=== PATIENT | female | born 1945 | race Caucasian/White ===

== ENCOUNTER 2017-08-12 19:20 | Inpatient (IN) ==
--- NOTE | 2017-08-12 20:21 | Emergency Department Note ---
Weakness HPI - General Chief complaint: Weakness Stated complaint: weakness Time Seen by Provider: 08/12/17 19:51 Source: patient Mode of arrival: ambulatory Limitations: no limitations - History of Present Illness HPI Narrative: 71-year-old female presents with back pain and weakness. She has metastatic breast cancer and has metastasized to her bones and her liver. She is receiving treatment for this. She had a fall 10 days ago and has a fracture in her low back. She was admitted at [facility] twice for this in the last 10 days. She wanted to go home and thought she could take care of herself at home but today she had another fall. She states she was going from the toilet to the walker and could not support herself and fell backwards onto her back. She states she has worse pain but no new pain. She is taking morphine twice a day along with codeine and ibuprofen. She denies any hip pain. She denies any hitting her head or loss of consciousness. She denies any upper extremity pain. She states at this point she cannot take care of herself at home and is very weak in her lower extremities. She needs to be in a nursing facility to get her strength up. - Related Data Allergies Allergy/AdvReac Type Severity Reaction Status Date / Time No Known Drug Allergies Allergy Verified 08/12/17 19:28 Review of Systems All systems ED: reviewed and negative except as stated. Past Medical History - Past Medical History Medical history: Reports: other (Metastatic breast cancer to bone and liver receiving treatment) Psychiatric history: Reports: no psych history [employer] history: Reports: non-contributory Surgical history ED: Reports: other (right shoulder, mastectomy) Family history: Reports: non-contributory - Social History smoking status: Never smoker Physical Exam Limitations: no limitations General appearance: alert, in no apparent distress Head: atraumatic Eye: Present: normal appearance. Absent: conjunctival injection Neck: Present: normal inspection, full ROM Chest: Present: normal inspection, symmetric chest wall rise Respiratory: Present: normal lung sounds bilaterally Cardiovascular: Present: regular rate, normal heart sounds Abdominal: Present: soft, normal bowel sounds. Absent: tenderness Extremities: Present: normal inspection, full ROM Neurological: Present: alert, oriented X3 Psychiatric: Present: normal affect, normal mood Skin: Present: warm, dry, intact Course Course Narrative: Reviewing her paperwork from [facility] she had the same issues on Tuesday. She was admitted and discharged 3 days ago. At that time and they plan that said that she was going to try to get placed into a SNF but she states that this was not discussed. She does not remember if she said she wanted to stay at home or go to a nursing facility. She states she is taking her MS Contin 15 mg twice a day and the oxycodone 10-20 mg every 4-6 hours. She had a CT scan which showed the pathologic fracture that was nondisplaced and she had a repeat x-ray which did not show any acute abnormality. She thinks that taking the pain medication is causing her to fall because she feels unsteady on her feet Report given to Dr. Olea and he will continue care of the patient Vital Signs Temperature 99.1 F H 08/12/17 19:21 Pulse Rate 78 08/12/17 19:21 Respiratory Rate 16 08/12/17 19:21 Blood Pressure 149/92 08/12/17 19:21 Pulse Oximetry (%) 96 08/12/17 19:21 Temperature 99.1 F H 08/12/17 19:21 Pulse Rate 78 08/12/17 22:03 Respiratory Rate 16 08/12/17 19:21 Blood Pressure 144/86 08/12/17 22:03 Pulse Oximetry (%) 97 08/12/17 22:03 Weakness - Lab Data Lab results reviewed: Yes I reviewed the patient's lab results. Result diagrams: 08/12/17 20:21 08/12/17 20:21 Lab Results 08/12/17 08/12/17 Range/Units 20:21 20:21 WBC 8.3 (4.5-11.0) K/mcL RBC 4.12 (4.00-5.20) M/mcL Hgb 13.2 (12.0-15.0) g/dL Hct 40.0 (36.0-48.0) % MCV 97.0 (80.0-100.0) fL MCH 31.9 (26.0-34.0) pg MCHC 32.9 (31.0-36.0) g/dL RDW 17.9 H (11.5-14.5) % Plt Count 168 (140-440) K/mcL MPV 8.2 (7.4-10.4) fL Total Counted 100 Seg Neutrophils % 78 (38-78) % Band Neutrophils % 1 (0-10) % Lymphocytes % 14 L (15-49) % Monocytes % (Manual) 5 (1-12) % Eosinophils % (Manual) 1 (0-7) % Reactive Lymphocytes 1 (0-2) % Platelet Estimate Normal (NORMAL) RBC Morphology Abnorm A (NORMAL) Anisocytosis 2+ A (NONE SEEN) Ovalocytes 1+ A (NONE SEEN) Sodium 137 (133-145) mmol/L Potassium 4.2 (3.3-5.1) mmol/L Chloride 102 (96-108) mmol/L Carbon Dioxide 21 L (22-30) mmol/L Anion Gap 14.0 (8-16) BUN 21 (8-23) mg/dl Creatinine 1.0 (0.6-1.1) mg/dl GFR Calculation 57 Glucose 109 H (70-105) mg/dL Calcium 8.6 (8.6-10.4) mg/dl Total Bilirubin 0.5 (0.0-1.0) mg/dL AST 31 (0-37) U/l ALT 33 (0-40) U/l Alkaline Phosphatase 56 (39-117) U/L Total Protein 6.1 (5.9-8.4) gm/dL Albumin 3.7 (3.2-5.2) gm/dL Globulin 2.4 (2.2-3.7) gm/dL Albumin/Globulin Ratio 1.5 (1.0-2.3) Disposition Pt seen by GROOMING ASSISTANT/PA only: No Clinical Impression: Intractable pain Condition: Fair Referrals: Enma Boss [Primary Care Provider] -
[2017-08-12] MEDS ORDERED: HYDROmorphone 2 MG/ML VIAL IM ONE (20:29)
[2017-08-12 21:10] LABS: Mean Corpuscular HGB Conc 32.9 g/dL (31.0-36.0); Mean Corpuscular Hemoglobin 31.9 pg (26.0-34.0); Platelet Count 168 K/mcL (140-440); RBC 4.12 M/mcL (4.00-5.20); Red Cell Distribution Width 17.9 % (11.5-14.5)
[2017-08-12 21:13] LABS: ALT/SGPT 33 U/l (0-40); Albumin 3.7 gm/dL (3.2-5.2); Albumin/Globulin Ratio 1.5 (1.0-2.3); Alkaline Phosphatase 56 U/L (39-117); Blood Urea Nitrogen 21 mg/dl (8-23)
[2017-08-12 21:46] LABS: Anisocytosis 2+ (NONE SEEN); Band Neutrophils % 1 % (0-10); Eosinophils % (Manual) 1 % (0-7); Lymphocytes % 14 % (15-49); Monocytes % (Manual) 5 % (1-12); Ovalocytes 1+ (NONE SEEN); Platelet Estimate NORMAL (NORMAL); RBC Morphology ABNORM (NORMAL); Segmented Neutrophils % 78 % (38-78)
[2017-08-12 23:48] LABS: Appearance,Urine HAZY; Bacteria,Urine FEW /hpf (0); Bilirubin,Urine NEG (NEG); Calcium Oxalate Crystals,Urine MANY /hpf (0); Color,Urine AMBER; Glucose,Urine (UA) NEGATIVE (NEG); Leukocyte Esterase,Urine 250 /uL (NEG); Mucus,Urine MOD /hpf (0); Protein,Urine 100 mg/dL (NEG); Specific Gravity,Urine 1.036 (1.000-1.035); Urine Blood NEG mg/dL (<0.03); Urine Budding Yeast FEW /hpf (0); Urine Hyaline Cast 1 /lpf (0-2); Urine RBC 3 /hpf (0-1); Urine Squamous Epithelial Cell 2 /hpf (0-4); Urine Transitional Epi Cells 1 /hpf (0-2); Urine WBC 9 /hpf (0-4); Urobilinogen,Urine NEG (NEG)
[2017-08-13] MEDS ORDERED: levETIRAcetam 500 MG in 0.9 % SODIUM CHLORIDE 100 ML IV ONE (01:05)
--- NOTE | 2017-08-13 01:55 | Internal Med History&Physical ---
Medical - H&P: HPI Patient information: Note initiated : 08/13/17 at 1:53 am Service Date, if different from initiated Date: [] Patient: Lulu Emmanuel a 71 y/o F admitted on for weakness. Chief Complaint: [] History of present illness: Ms. Emmanuel is a 71 year old F with history of diabetes metastatic breast cancer comes to the emergency room with complaints of back pain. According to the patient she has been having back pain for the last 2 weeks. She was seen in the [facility] for same and was admitted to that facility. She has had a scan done a CAT scan which showed a pathological fracture. She was given pain management and discharged home. Patient notes that she was getting better and therefore decided to go home. After going home she notes that the pain has been progressively getting worse, she fell down today because of severe pain and is unable to care for herself at this point. Patient therefore came to the hospital to see if she could be placed to a group home. The patient during the stay in the emergency room also possibly had a seizure which was witnessed by the ER physician. During my conversation with the patient the patient noted that she had no recollection of the said seizure. The patient does have a history of seizures and takes Keppra for same. Last seizure was approximately a year ago. The patient is able to move all her limbs and denies any focal neurological deficit, denies any bowel bladder incontinence. The patient's workup in the emergency showed normal hemoglobin and WBC count, normal platelets, unremarkable basic metabolic profile, UA possibly suggestive of UTI however the patient has no urinary symptoms. The patient notes that she has had a loop recorder in place to evaluate for any cardiac arrhythmia, however this is an MRI safe device. And she has had MRIs done after placement of this device. The patient did not bring any of her home medications for verification at this point in time. Given the fact that patient cannot be discharged back home due to intractable pain, possible UTI and seizure the patient is being admitted to the hospital for further evaluation. The patient is a DNR CODE STATUS Review of systems: CONSTITUTIONAL: No weight loss, fever, chills, weakness or fatigue. HEENT: Eyes: No visual loss, blurred vision, double vision or yellow sclerae. Ears, Nose, Throat: No hearing loss, sneezing, congestion, runny nose or sore throat. SKIN: No rash or itching. CARDIOVASCULAR: No chest pain, chest pressure or chest discomfort. No palpitations or edema. RESPIRATORY: No shortness of breath, cough or sputum. GASTROINTESTINAL: No nausea, vomiting or diarrhea or constipation. No abdominal pain or blood in stools No Sharon. GENITOURINARY: Denies Burning on urination. Blood in urine, or foul smelling urine NEUROLOGICAL: No headache, dizziness, syncope, paralysis, tremors, numbness or tingling in the extremities. No change in bowel or bladder control. MUSCULOSKELETAL: patient has severe back pain, right knee pain HEMATOLOGIC: No bleeding or bruising. No enlarged nodes PSYCHIATRIC: No depression or anxiety. ENDOCRINOLOGIC: No reports of sweating, cold or heat intolerance. No polyuria or polydipsia. ALLERGIES: No hives, eczema or rhinitis. Skin: No rash, no jaundice, cyanosis or pallor. Medical - H&P: PMH Medical history: Metastatic breast cancer Hypertension Diabetes Obesity Vertebral fracture Surgical history: Bilateral knee replacement, right shoulder replacement Pertinent family history: Reviewed not relevant Social history: Lives by herself, brother who lives outside of the town is here to help her and her mother. Denies any history of smoking or recreational substance use Medical - H&P: Meds Allergies Allergy/AdvReac Type Severity Reaction Status Date / Time No Known Drug Allergies Allergy Verified 08/12/17 19:28 Medical - H&P: Exam - Constitutional Vitals: Temp Pulse Resp BP Pulse Ox 99.1 F H 79 16 165/96 99 08/12/17 19:21 08/13/17 01:31 08/12/17 19:21 08/13/17 01:31 08/13/17 01:31 Exam: GENERAL: The patient is a well-developed, well-nourished in no apparent distress. Is alert and oriented x3. VITAL SIGNS: Reviewed and as noted elsewhere. HEENT: Head is normocephalic and atraumatic. Extraocular muscles are intact. Pupils are equal, round, and reactive to light. Nares appeared normal. Mouth appears any without lesions. Mucous membranes are moist. NECK: Normal to inspection, Supple, No lymphadenopathy or thyromegaly. LUNGS: Air entry equal on both sides, no wheezing, crackles or rhonchi noted. No accessory muscles of respiration HEART: Regular rate and rhythm normal, S1 and S2 heard, no Gallop, S3 or Rub Noted, No Gross murmur heard. ABDOMEN: Soft, nontender, and nondistended. Positive bowel sounds. No hepatosplenomegaly was noted. EXTREMITIES: No cyanosis, clubbing, rash, lesions or edema. NEUROLOGIC: Cranial nerves II through XII are grossly intact. Motor and Sensory System Grossly Intact PSYCHIATRIC: Normal affect, Normal Mood. Appropriate Behavior. SKIN: No ulceration or wounds noted, No jaundice, No rash noted. Medical - H&P: Reslt - Labs CBC & Chem 7: 08/12/17 20:21 08/12/17 20:21 Labs: Short CBC 08/12/17 Range/Units 20:21 WBC 8.3 (4.5-11.0) K/mcL Hgb 13.2 (12.0-15.0) g/dL Hct 40.0 (36.0-48.0) % Plt Count 168 (140-440) K/mcL BMP 08/12/17 20:21 Sodium 137 Potassium 4.2 Chloride 102 Carbon Dioxide 21 L BUN 21 Creatinine 1.0 Glucose 109 H Calcium 8.6 Liver Function 08/12/17 Range/Units 20:21 Total Bilirubin 0.5 (0.0-1.0) mg/dL AST 31 (0-37) U/l ALT 33 (0-40) U/l Alkaline Phosphatase 56 (39-117) U/L Albumin 3.7 (3.2-5.2) gm/dL Urine 08/12/17 Range/Units 23:05 Urine Color Ludmila Urine Appearance Hazy Urine pH 5.0 (5.0-9.0) Ur Specific [place] 1.036 H (1.000-1.035) Urine Protein 100 A (NEG) mg/dL Urine Glucose (UA) Negative (NEG) mg/dL Medical - H&P: A/P - Narrative A/P Narrative: A/P Pathological Vertebral Fracture Seizure Disorder Urinary Tract Infection Diabetes Hypertension Intractable Pain, secondary metastatic disease, Pathological fracture Plan Admit to med surg as inpatient IV dilaudid for pain control neurochecks q4hrs, Iv keppra x 1, verify home meds iv rocephin for uti, await culture results resume home meds as appropriate Get x ray of right knee, try to obtain mri LS spine, MR Head, given, if not possible then consider CT spine and CT head DVT hep sq' DNR code status Diabetic Diet.
[2017-08-13] MEDS ORDERED: ACETAMINOPHEN 325 MG TABLET PO PRN (02:32)
[2017-08-13] MEDS ORDERED: DEXTROSE 31 GM ORAL.SUSP PO PRN (02:32)
[2017-08-13] MEDS ORDERED: DEXTROSE 50% 50 ML VIAL IV PRN (02:32)
[2017-08-13] MEDS ORDERED: IBUPROFEN 600 MG TABLET PO PRN (02:32)
[2017-08-13] MEDS ORDERED: cefTRIAXone 1 GM VIAL ONE (02:38)
[2017-08-13] MEDS ORDERED: ONDANSETRON 4 MG/2 ML VIAL ONE (02:46)
[2017-08-13] MEDS ORDERED: HYDROmorphone 2 MG/ML VIAL ONE ×3 (02:46→12:37)
[2017-08-13] MEDS: cefTRIAXone 1 GM in DEXTROSE 5% IN WATER 50 ML IV SCH ×3 (02:51→17:33)
[2017-08-13] MEDS: ONDANSETRON 4 MG/2 ML VIAL IV PRN ×2 (02:51→13:06)
[2017-08-13] MEDS: HYDROmorphone 2 MG/ML VIAL IV PRN ×5 (02:52→18:45)
[2017-08-13] MEDS: 0.9 % SODIUM CHLORIDE 1,000 ML IV SCH ×2 (02:55→12:43)
[2017-08-13 06:08] LABS: Basophils # (Auto) 0 K/mcL (0.0-0.3); Basophils % (Auto) 0.2 % (0.0-2.0); Eosinophils # (Auto) 0.3 K/mcL (0.0-0.7); Eosinophils % (Auto) 4.2 % (0.0-7.0); Granulocytes % (Auto) 73.1 % (38.0-78.0); Lymphocytes # (Auto) 1.1 K/mcL (1.5-4.8); Lymphocytes % (Auto) 13.8 % (15.5-49.0); Mean Cell Volume 99.1 fL (80.0-100.0); Mean Corpuscular HGB Conc 33.6 g/dL (31.0-36.0); Mean Corpuscular Hemoglobin 33.2 pg (26.0-34.0); Monocytes # (Auto) 0.7 K/mcL (0.1-0.9); Monocytes % (Auto) 8.7 % (1.0-12.0); Platelet Count 132 K/mcL (140-440); RBC 3.64 M/mcL (4.00-5.20); Red Cell Distribution Width 19.6 % (11.5-14.5)
[2017-08-13] MEDS: 0.9 % SODIUM CHLORIDE 10 ML SYRINGE IV SCH ×3 (06:11→20:40)
[2017-08-13 06:36] LABS: ALT/SGPT 32 U/l (0-40); Albumin 3.3 gm/dL (3.2-5.2); Albumin/Globulin Ratio 1.7 (1.0-2.3); Alkaline Phosphatase 52 U/L (39-117); Bilirubin,Direct < 0.2 mg/dL (0.0-0.3); Blood Urea Nitrogen 19 mg/dl (8-23); Gamma Glutamyl Transpeptidase 28 U/L (5-36); Uric Acid 2.7 mg/dL (2.5-8.0)
[2017-08-13] MEDS: INSULIN LISPRO 1 UNIT/0.01 ML UNIT SQ SCH ×4 (07:12→21:00)
[2017-08-13] MEDS: PANTOPRAZOLE 40 MG TABLET PO SCH (07:30)
[2017-08-13] MEDS: HEPARIN 5,000 UNIT/ML VIAL SQ SCH ×2 (08:46→20:38)
[2017-08-13] MEDS: DOCUSATE SODIUM 100 MG CAPSULE PO SCH ×2 (08:47→20:39)
[2017-08-13] MEDS ORDERED: levETIRAcetam 500 MG TABLET PO SCH (09:00)
--- NOTE | 2017-08-13 09:06 | XRay Report ---
CLINICAL INFORMATION: Previous bilateral total knee arthroplasty TECHNIQUE: AP and lateral bilateral knees COMPARISON: Postoperative right knee dated 03/30/2010, postoperative left knee dated 07/06/2010 FINDINGS: Previous bilateral total knee arthroplasty. No acute fracture. There is lucency surrounding the tibial complements bilaterally, left more prominent than right. This may indicate loosening. There is no bone destruction. No displacement or malalignment. IMPRESSION: 1. Previous bilateral total knee replacement 2. No acute fracture 3. Lucency surrounding the tibial complements as above Interpreted and Authenticated by: Hector Jones 08/13/17
[2017-08-13] MEDS ORDERED: MAGNESIUM HYDROXIDE 30 ML ORAL.SUSP PO PRN (12:28)
[2017-08-13] MEDS ORDERED: ONDANSETRON ODT 4 MG TABLET SL PRN (12:28)
[2017-08-13] MEDS ORDERED: ALBUTEROL SULFATE 2.5 MG/3 ML NEBULIZER NEB PRN (12:28)
[2017-08-13] MEDS ORDERED: BISACODYL 10 MG SUPP.RECT PR PRN (12:28)
[2017-08-13] MEDS ORDERED: BISACODYL 5 MG TABLET PO PRN (12:28)
[2017-08-13] MEDS ORDERED: MAG HYDROX/AL HYDROX/SIMETH 30 ML ORAL.SUSP PO PRN (12:28)
[2017-08-13] MEDS ORDERED: SENNOSIDES 1 TABLET PO PRN (12:28)
[2017-08-13] MEDS ORDERED: PROCHLORPERAZINE MALEATE 10 MG TABLET PO PRN (12:28)
[2017-08-13] MEDS ORDERED: HYDROmorphone 2 MG/ML VIAL IV ONE (12:31)
[2017-08-13] MEDS ORDERED: LORazepam 2 MG/ML VIAL IV ONE (12:31)
[2017-08-13] MEDS ORDERED: POLYETHYLENE GLYCOL 3350 17 GM PACKET PO PRN (13:00)
[2017-08-13] MEDS: ALPRAZolam 0.5 MG TABLET PO PRN (13:03)
[2017-08-13] MEDS: morphine 15 MG TAB.SR.12H PO SCH ×2 (13:03→20:39)
[2017-08-13] MEDS: ACETAMINOPHEN 650 MG/65 ML BOTTLE IV PRN (13:45)
[2017-08-13] MEDS: METHOCARBAMOL 750 MG TABLET PO PRN (13:46)
[2017-08-13] MEDS: KETOROLAC 30 MG/ML VIAL IV SCH ×2 (13:53→20:37)
[2017-08-13] MEDS ORDERED: IOPAMIDOL 100 ML BOTTLE IV ONE (15:54)
[2017-08-13] MEDS ORDERED: METOCLOPRAMIDE 10 MG TABLET PO PRN (17:00)
--- NOTE | 2017-08-13 17:39 | Internal Med Progress Note ---
Medical - PN: Subj Patient information: Note initiated : 08/13/17 at 5:36 pm Service Date, if different from initiated Date: [] Patient: Lulu Emmanuel a 71 y/o F admitted on 08/13/17 for weakness. Chief Complaint: [] Interval history: Ms. Emmanuel is a 71 year old F with history of diabetes metastatic breast cancer comes to the emergency room with complaints of back pain. According to the patient she has been having back pain for the last 2 weeks. She was seen in the [facility] for same and was admitted to that facility. She has had a scan done a CAT scan which showed a pathological fracture. She was given pain management and discharged home. Patient notes that she was getting better and therefore decided to go home. After going home she notes that the pain has been progressively getting worse, she fell down today because of severe pain and is unable to care for herself at this point. Patient therefore came to the hospital to see if she could be placed to a care home. The patient during the stay in the emergency room also possibly had a seizure which was witnessed by the ER physician. During my conversation with the patient the patient noted that she had no recollection of the said seizure. The patient does have a history of seizures and takes Keppra for same. Last seizure was approximately a year ago. The patient is able to move all her limbs and denies any focal neurological deficit, denies any bowel bladder incontinence. The patient's workup in the emergency showed normal hemoglobin and WBC count, normal platelets, unremarkable basic metabolic profile, UA possibly suggestive of UTI however the patient has no urinary symptoms. The patient notes that she has had a loop recorder in place to evaluate for any cardiac arrhythmia, however this is an MRI safe device. And she has had MRIs done after placement of this device. The patient did not bring any of her home medications for verification at this point in time. Given the fact that patient cannot be discharged back home due to intractable pain, possible UTI and seizure the patient is being admitted to the hospital for further evaluation. The patient is a DNR CODE STATUS August 13 Patient seen and examined, no acute overnight events, could not get an MRI due to implanted loop monitor, we have a 3 Ashley machine and the loop monitor is only a 1.5 Ashley. The patient otherwise has no new symptoms, still has back pain which she rates 10 out of 10 intermittently. We tried to get a CT scan this morning however the patient had a panic attack and the pain exacerbated. We started the patient on IV Tylenol as needed and scheduled Toradol and got the CT scans this afternoon. Reading is pending. Home medications for pain has been renewed. Pertinent ROS: Denies headache, dizziness Denies chest pain, palpitations Denies cough or shortness of breath Denies abdominal pain, nausea or vomiting. - Constitutional Vitals: Vital Signs Temp Pulse Resp BP Pulse Ox 97.1 F 70 12 115/73 96 08/13/17 15:01 08/13/17 04:00 08/13/17 17:28 08/13/17 15:01 08/13/17 17:28 Period Temp Pulse Resp BP Sys/Eastman Pulse Ox Last 24 Hr 97.1 F-99.1 F 66-83 12-20 115-166/73-131 92-99 Intake and Output 08/13/17 08/13/17 08/13/17 05:59 13:59 21:59 Intake Total 105 / 105 1220 / 1220 Balance 105 / 105 1220 / 1220 Weight 280 lb 6.4 oz Intake & Output: Intake & Output 08/13/17 08/13/17 08/13/17 05:59 13:59 21:59 Intake Total 105 / 105 1220 / 1220 Balance 105 / 105 1220 / 1220 Weight 280 lb 6.4 oz Intake: IV 105 / 105 980 / 980 Sodium Chloride 0.9% 1,000 ml @ 980 / 980 100 mls/hr IV .Q10H [facility] Rx#: [id number] Keppra 500 mg In Sodium 105 / 105 Chloride 0.9% 100 ml @ 200 mls/ hr IV ONCE ONE Rx#:[id number] Oral 0 / 0 240 / 240 Other: Meal Breakfast Percent of Meal Consumed 100% Feeding Ability Assist with Tray Set Up Exam: Constitutional; Afebrile, cooperative, alert, not in distress. Eyes- No icterus, , No periorbital swelling Ears- Ext ear normal, hearing normal to conversation. Neck- Midline trachea, supple Respiratory system: Air Entry equal on both sides, No crackles or wheezing, no rhonchi. CVS- Rate rhythm regular, S1,S2 heard, no gallop, no rub. Abdomen- Soft nontender abdomen, no organomegaly, no tenderness, no guarding or rigidity, SKI MAKER- AOOx3, moving all extremities, no gross focal deficit noted. Medical - PN: Obj Da - Labs CBC & Chem 7: 08/13/17 04:35 08/13/17 04:35 Labs: Abnormal Lab Results 08/13/17 08/13/17 08/12/17 04:35 04:35 23:05 RBC 3.64 L RDW 19.6 H Plt Count 132 L Lymph % (Auto) 13.8 L Lymph # (Auto) 1.1 L Lymphocytes % RBC Morphology Anisocytosis Ovalocytes Carbon Dioxide 21 L Glucose 109 H Calcium 7.7 L Total Protein 5.3 L Globulin 2.0 L Ur Specific [place] 1.036 H Urine Protein 100 A Ur Leukocyte Esterase 250 A Urine RBC 3 H Urine WBC 9 H Calcium Oxalate Crystal Many A Urine Bacteria Few A Urine Yeast (Budding) Few A 08/12/17 08/12/17 20:21 20:21 RBC RDW 17.9 H Plt Count Lymph % (Auto) Lymph # (Auto) Lymphocytes % 14 L RBC Morphology Abnorm A Anisocytosis 2+ A Ovalocytes 1+ A Carbon Dioxide 21 L Glucose 109 H Calcium Total Protein Globulin Ur Specific [place] Urine Protein Ur Leukocyte Esterase Urine RBC Urine WBC Calcium Oxalate Crystal Urine Bacteria Urine Yeast (Budding) Meds: Medications Acetaminophen (Tylenol) 650 mg PO Q6HP PRN PRN Reason: PAIN/FEVER > 101 Al Hydrox/Mg Hydrox/Simethicone (Maalox) 30 ml PO Q4HP PRN PRN Reason: Heartburn Albuterol Sulfate (Ventolin) 2.5 mg NEB Q2HP PRN PRN Reason: Shortness Of Breath Alprazolam (Xanax) 0.5 mg PO Q8HP PRN PRN Reason: Anxiety Last Admin: 08/13/17 13:03 Dose: 0.5 mg Bisacodyl (Dulcolax) 10 mg PO DAILYP PRN PRN Reason: Constipation Bisacodyl (Dulcolax) 10 mg NH DAILYP PRN PRN Reason: Constipation Dexamethasone (Decadron) 2 mg PO BID JUSTIN Stop: 08/20/17 09:01 Dextrose (Dextrose 50%) 0 ml IV UD PRN PRN Reason: Hypoglycemia Diagnostic Test (Pha) (Accu-Chek) 1 each FS ACHS JUSTIN Last Admin: 08/13/17 17:22 Dose: 1 each Docusate Sodium (Colace) 100 mg PO BID [facility] Last Admin: 08/13/17 08:47 Dose: 100 mg Gabapentin (Neurontin) 900 mg PO HS [facility] Glucose (Insta-Glucose) 15 gm PO PRN PRN PRN Reason: Hypoglycemia Heparin Sodium (Porcine) (Heparin) 5,000 unit SQ Q12 [facility] Last Admin: 08/13/17 08:46 Dose: 5,000 unit Hydromorphone HCl (Dilaudid) 2 mg IV Q2HP PRN PRN Reason: PAIN LEVEL > 6 Last Admin: 08/13/17 14:44 Dose: 2 mg Sodium Chloride (Sodium Chloride 0.9%) 1,000 mls @ 100 mls/hr IV .Q10H [facility] Stop: 08/13/17 22:31 Last Admin: 08/13/17 12:43 Dose: 100 mls/hr Ceftriaxone Sodium 1 gm/ (Dextrose) 50 mls @ 100 mls/hr IV DAILY [facility] Last Admin: 08/13/17 17:33 Dose: 100 mls/hr Acetaminophen (Ofirmev) 650 mg in 65 mls @ 130 mls/hr IV Q6HP PRN PRN Reason: PAIN/FEVER > 101 Last Admin: 08/13/17 13:45 Dose: 130 mls/hr Insulin Human Lispro (Humalog) 0 unit SQ ACHS [facility] PRN Reason: Protocol Last Admin: 08/13/17 17:25 Dose: Not Given Ketorolac Tromethamine (Toradol) 15 mg IV Q6 [facility] Stop: 08/15/17 12:01 Last Admin: 08/13/17 13:53 Dose: 15 mg Levetiracetam (Keppra) 500 mg PO HS [facility] Levetiracetam (Keppra) 1,000 mg PO DAILY [facility] Magnesium Hydroxide (Milk Of Magnesia) 30 ml PO DAILYP PRN PRN Reason: Constipation Metformin HCl (Glucophage) 500 mg PO DAILY [facility] Methocarbamol (Robaxin) 750 mg PO Q8HP PRN PRN Reason: Muscle Spasm Last Admin: 08/13/17 13:46 Dose: 750 mg Metoclopramide HCl (Reglan) 10 mg PO Q6HP PRN PRN Reason: NAUSEA AND VOMITING Morphine Sulfate (Ms Contin) 15 mg PO BID [facility] Last Admin: 08/13/17 13:03 Dose: 15 mg Ondansetron HCl (Zofran) 4 mg IV Q6HP PRN PRN Reason: Nausea And Vomiting Last Admin: 08/13/17 13:06 Dose: 4 mg Ondansetron HCl (Zofran Odt) 4 mg SL Q4HP PRN PRN Reason: Nausea Oxycodone HCl (Roxicodone) 5 - 10 mg PO Q4HP PRN PRN Reason: Pain Pantoprazole Sodium (Protonix) 40 mg PO QAMAC [facility] Last Admin: 08/13/17 07:30 Dose: 40 mg Polyethylene Glycol (Miralax) 17 gm PO DAILYP PRN PRN Reason: Constipation Prochlorperazine Maleate (Compazine) 10 mg PO Q8HP PRN PRN Reason: Nausea Senna (Senokot) 2 tab PO HS [facility] Sodium Chloride (Saline Flush) 10 ml IV Q8 [facility] Last Admin: 08/13/17 13:08 Dose: Not Given Medical - PN: A/P - Time Spent With Patient Total time spent is greater than 50% in coordination of care (as documented) at patient's floor/unit and/or counseling patient: - Narrative A/P Narrative: A/P Pathological Vertebral Fracture Seizure Disorder Urinary Tract Infection Diabetes Hypertension Intractable Pain, secondary metastatic disease, Pathological fracture Plan Admit to med surg as inpatient IV dilaudid for pain control, start IV Toradol and IV Tylenol as needed. neurochecks q4hrs, Iv keppra x 1, resume home dose of Keppra no seizures noted Home medications resumed iv rocephin for uti, await culture results, no growth so far X-ray of the right knee and left knee does not show any evidence of metastases, CT head and lumbar CT is pending DVT hep sq' DNR code status Diabetic Diet. Medical - PN: Qual - VTE Deep Vein Thrombosis/Pulmonary Embolism Present on Admission: No
[2017-08-13] MEDS: GABAPENTIN 300 MG CAPSULE PO SCH (20:38)
[2017-08-13] MEDS: DEXAMETHASONE 4 MG TABLET PO SCH (20:39)
[2017-08-13] MEDS: levETIRAcetam 500 MG TABLET PO SCH (20:39)
[2017-08-13] MEDS: SENNOSIDES 1 TABLET PO SCH (20:39)
[2017-08-13] MEDS ORDERED: DOCUSATE SODIUM 100 MG CAPSULE PO SCH (21:00)
--- NOTE | 2017-08-13 23:15 | Emergency Department Note ---
Back Pain HPI - General Chief Complaint: Weakness Stated Complaint: weakness Time Seen by Provider: 08/12/17 19:51 Source: patient Limitations: no limitations, physical limitation - History of Present Illness HPI Narrative: SEE H&P FROM JEN HORNE. Patient confirms this HX and I agree with Jen's documentation. I spoke with and examined patient and reviewed her history and presentation. Jen transferred care to me as she went off shift. I spoke with Hospital grease refining supervisor. Patient not qualifying for inpatient stay, nor for observation. However, with UTI probable, and then had a seizure in the ER, qualifies for in patient monitoring and possible future placement. I remarked to patient that she is unlikely to be able to receive chemotherapy in jail facility due to cost of the medications (she is on an oral chemotherapy for metastatic breast cancer). She understands this, but repeatedly affirms that she can't handle things for herself at home. Her brother, who has been there for some help, will not be there rat exterminator as he is from out of town. And she is requiring major assist even in transfer. She reports she can't even walk 3 feet. Is taking medication of sizeable amount - MS Contin 15 two or three times a day, plus oxycodone 10 for breakthrough. Still having significant pain; also some constipation. She reports that hospice considerations have not been discussed - she hasn't heard that any has said that in his/her opinion that she (Lulu) has less than 6 months to live. - Related Data Home Medications Medication Instructions Recorded Confirmed ALPRAZolam [Xanax] 0.5 mg PO Q8HP PRN 08/13/17 08/13/17 Acetaminophen 650 mg PO Q4HP PRN 08/13/17 08/13/17 Albuterol Sulfate [Ventolin] 2.5 mg NEB Q2HP PRN 08/13/17 08/13/17 Bisacodyl [Dulcolax] 10 mg PO DAILYP PRN 08/13/17 08/13/17 Bisacodyl [Dulcolax] 10 mg [place] DAILYP PRN 08/13/17 08/13/17 Dexamethasone 2 mg PO BID 08/13/17 08/13/17 Dextrose [Glucose] 15 gm PO PRN PRN 08/13/17 08/13/17 Docusate Sodium [Dulcolax Stool 100 mg PO BID 08/13/17 08/13/17 Softener] Gabapentin [Neurontin] 900 mg PO HS 08/13/17 08/13/17 Glucagon HCl 1 mg IM PRN PRN 08/13/17 08/13/17 Mag Hydrox/Al Hydrox/Simeth 30 ml PO Q4HP PRN 08/13/17 08/13/17 [Alum-Mag Hydroxide-Simeth Liq] Magnesium Hydroxide [Milk of 30 ml PO DAILYP PRN 08/13/17 08/13/17 Magnesia] Methocarbamol [Robaxin-750] 750 mg PO Q8HP PRN 08/13/17 08/13/17 Metoclopramide HCl [Metoclopramide 10 mg PO Q6HP PRN 08/13/17 08/13/17 HCl Odt] Ondansetron HCl [Zofran ODT] 4 mg SL Q4HP PRN 08/13/17 08/13/17 Polyethylene Glycol [Polyox 17 gm [place] DAILYP PRN 08/13/17 08/13/17 [id number]] Prochlorperazine Maleate 10 mg PO Q8HP PRN 08/13/17 08/13/17 [Compazine] Promethazine [Phenergan] 25 mg [place] Q6HP PRN 08/13/17 08/13/17 Sennosides [Natural Vegetable 8.6 mg PO HSP PRN 08/13/17 08/13/17 Laxative] levETIRAcetam [Keppra] 1,000 mg PO DAILY 08/13/17 08/13/17 levETIRAcetam [Levetiracetam] 500 mg PO HS 08/13/17 08/13/17 metFORMIN [Glucophage] 500 mg PO DAILY 08/13/17 08/13/17 morphine [Ms Contin] 15 mg PO BID 08/13/17 08/13/17 oxyCODONE HCL [Oxycodone HCl] 5 - 10 mg PO Q4HP PRN 08/13/17 08/13/17 Allergies Allergy/AdvReac Type Severity Reaction Status Date / Time No Known Drug Allergies Allergy Verified 08/12/17 19:28 Past Medical History - Past Medical History Medical history: Reports: other (Metastatic breast cancer to bone and liver receiving treatment) Psychiatric history: Reports: no psych history [employer]ER history: Reports: non-contributory Surgical history ED: Reports: other (right shoulder, mastectomy) - Social History smoking status: Former smoker Physical Exam Limitations: no limitations General appearance: alert, in no apparent distress Course Vital Signs Temperature 99.1 F H 08/12/17 19:21 Pulse Rate 78 08/12/17 19:21 Respiratory Rate 16 08/12/17 19:21 Blood Pressure 149/92 08/12/17 19:21 Pulse Oximetry (%) 96 08/12/17 19:21 Temperature 97.7 F 08/13/17 20:00 Pulse Rate 68 08/13/17 20:00 Respiratory Rate 22 08/13/17 20:00 Blood Pressure 133/88 08/13/17 20:00 Pulse Oximetry (%) 100 08/13/17 20:00 Back Pain/Injury - [facility] Narrative Medical decision making narrative: While in the patient's room, discussing some of the concerns of her circumstances for home, and future arrangements, patient started staring off into space, looking beyond me and then left and left and over me, eyes conjugate , but gradually moving to looking up and left. Also with gradual turning of head rotating to the left and extending mildly. Speechless. Corner of mouth left side mildly drawn back. Slight shakiness of the left arm/hand. Only very shallow breathing. Then it seemed to resolve fairly quickly (total time of above approximately 90 seconds max), and patient gradually over 30 seconds began to focus, initially looked confused, then was able to nod her head, then was able to converse and returned to normal. She reported a history of seizures in the past, total of four, last being November 29, 2016. She reports being on medication for seizures, but does not know the name. I discussed her care with Dr. Briggs who kindly accepted her care for in- patient or observation in [facility] and consider placement to SNF. Consider Hospice future. - Lab Data Result diagrams: 08/13/17 04:35 08/13/17 04:35 Lab Results 08/12/17 08/12/17 08/12/17 Range/Units 20:21 20:21 23:05 WBC 8.3 (4.5-11.0) K/mcL RBC 4.12 (4.00-5.20) M/mcL Hgb 13.2 (12.0-15.0) g/dL Hct 40.0 (36.0-48.0) % MCV 97.0 (80.0-100.0) fL MCH 31.9 (26.0-34.0) pg MCHC 32.9 (31.0-36.0) g/dL RDW 17.9 H (11.5-14.5) % Plt Count 168 (140-440) K/mcL MPV 8.2 (7.4-10.4) fL Total Counted 100 Seg Neutrophils % 78 (38-78) % Band Neutrophils % 1 (0-10) % Lymphocytes % 14 L (15-49) % Monocytes % (Manual) 5 (1-12) % Eosinophils % (Manual) 1 (0-7) % Reactive Lymphocytes 1 (0-2) % Platelet Estimate Normal (NORMAL) RBC Morphology Abnorm A (NORMAL) Anisocytosis 2+ A (NONE SEEN) Ovalocytes 1+ A (NONE SEEN) Sodium 137 (133-145) mmol/L Potassium 4.2 (3.3-5.1) mmol/L Chloride 102 (96-108) mmol/L Carbon Dioxide 21 L (22-30) mmol/L Anion Gap 14.0 (8-16) BUN 21 (8-23) mg/dl Creatinine 1.0 (0.6-1.1) mg/dl GFR Calculation 57 Glucose 109 H (70-105) mg/dL Calcium 8.6 (8.6-10.4) mg/dl Total Bilirubin 0.5 (0.0-1.0) mg/dL AST 31 (0-37) U/l ALT 33 (0-40) U/l Alkaline Phosphatase 56 (39-117) U/L Total Protein 6.1 (5.9-8.4) gm/dL Albumin 3.7 (3.2-5.2) gm/dL Globulin 2.4 (2.2-3.7) gm/dL Albumin/Globulin Ratio 1.5 (1.0-2.3) Urine Color [place] Urine Appearance Hazy Urine pH 5.0 (5.0-9.0) Ur Specific [place] 1.036 H (1.000-1.035) Urine Protein 100 A (NEG) mg/dL Urine Glucose (UA) Negative (NEG) mg/dL Urine Ketones Neg (NEG) mg/dL Urine Occult Blood Neg (<0.03) mg/dL Urine Nitrate Neg (NEG) Urine Bilirubin Neg (NEG) mg/dL Urine Urobilinogen Neg (NEG) mg/dL Ur Leukocyte Esterase 250 A (NEG) /uL Urine RBC 3 H (0-1) /hpf Urine WBC 9 H (0-4) /hpf Ur Squamous Epith Cells 2 (0-4) /hpf Ur Transition Epith Cell 1 (0-2) /hpf Calcium Oxalate Crystal Many A (0) /hpf Urine Bacteria Few A (0) /hpf Hyaline Casts 1 (0-2) /lpf Urine Mucus Mod (0) /hpf Urine Yeast (Budding) Few A (0) /hpf Ur Culture Indicated? Yes Disposition Pt seen by SALES REPRESENTATIVE CASH REGISTERS/PA only: No Clinical Impression: Intractable pain, Metastatic breast cancer, Self-care deficit in patient living alone Pathologic fracture Qualifiers: Pathology associated with fracture: unspecified disease Site of pathological fracture: other site Encounter type: subsequent encounter Fracture healing: with delayed healing Qualified Code(s): M84.48XG - Pathological fracture, other site, subsequent encounter for fracture with delayed healing Disposition: Xfer As Outpt/Obs ([facility]) Condition: Fair
[2017-08-14] MEDS: KETOROLAC 30 MG/ML VIAL IV SCH ×4 (00:15→18:01)
[2017-08-14] MEDS: oxyCODONE HCL 5 MG TABLET PO PRN (04:10)
[2017-08-14] MEDS: 0.9 % SODIUM CHLORIDE 10 ML SYRINGE IV SCH ×3 (05:36→21:28)
[2017-08-14 06:13] LABS: Basophils # (Auto) 0 K/mcL (0.0-0.3); Basophils % (Auto) 0 % (0.0-2.0); Eosinophils # (Auto) 0.2 K/mcL (0.0-0.7); Eosinophils % (Auto) 3.5 % (0.0-7.0); Granulocytes % (Auto) 82.9 % (38.0-78.0); Lymphocytes # (Auto) 0.5 K/mcL (1.5-4.8); Lymphocytes % (Auto) 7.5 % (15.5-49.0); Mean Cell Volume 98.9 fL (80.0-100.0); Mean Corpuscular HGB Conc 33.1 g/dL (31.0-36.0); Mean Corpuscular Hemoglobin 32.7 pg (26.0-34.0); Monocytes # (Auto) 0.4 K/mcL (0.1-0.9); Monocytes % (Auto) 6.1 % (1.0-12.0); Platelet Count 115 K/mcL (140-440); RBC 3.72 M/mcL (4.00-5.20); Red Cell Distribution Width 18.9 % (11.5-14.5)
--- NOTE | 2017-08-14 06:23 | Cat Scan Report ---
CLINICAL INFORMATION: Seizure. Weakness. TECHNIQUE: Axial noncontrast enhanced images through the brain. COMPARISON: None. FINDINGS: Suboptimal evaluation as the patient was unable to hold still. There is also streak artifact related to the patient's shoulders. No acute intracranial hemorrhage. No focal intra-axial attenuation abnormality. No localized mass effect. No midline shift. Brain volume is normal. Brainstem and cerebellum are negative. No extra-axial chem intracranial abnormality. Basilar cisterns are normal. No calvarial lesions. Patient has a history of breast cancer. No lytic lesion. No fracture. Temporal bones are negative IMPRESSION: Negative noncontrast enhanced brain CT scan Interpreted and Authenticated by: Hector Jones 08/14/17
--- NOTE | 2017-08-14 06:36 | Cat Scan Report ---
CLINICAL INFORMATION: History of breast cancer. Weakness. Back pain. TECHNIQUE: Axial images from T11 through the sacrum. Sagittal and coronally reformatted images. COMPARISON: Outside MRI scan dated 09/06/2016 FINDINGS: Examination is somewhat suboptimal due to this patient's large size. There is a lesion within the L3 vertebral body. This is predominantly left-sided. There is sclerosis and lucency. Appearance is essentially unchanged. No vertebral body collapse. No significant retropulsion. Posterior cortex is thinned or destroyed. This may be a primary bone lesion but metastasis is not excluded. No significant interval change is identified. Other lumbar vertebral bodies are negative. No other lytic or sclerotic lesions. Sacrum is negative. No sacral insufficiency fracture or destructive lesion. There is sclerosis within the right iliac bone consistent with metastasis. There is cortical destruction but no detectable fracture. There is also mild sclerosis along the iliac side of the left sacroiliac joint. This may be benign. Multilevel degenerative disc disease. There are vacuum discs at L2-3, L3-4, L4-5. No detectable soft disc herniation. Degenerative disc disease and facet arthropathy at L2-3. There is probable mild spinal canal stenosis. Degenerative disc disease and facet arthropathy at L3-4. There is moderate spinal canal stenosis. Degenerative disc disease and facet arthropathy at L4-5. Moderate to severe spinal canal stenosis. No paraspinal soft tissue mass. IMPRESSION: 1. Multilevel degenerative disc disease and facet arthropathy. Spinal canal stenoses as above 2. Mixed sclerotic and lytic lesion within the L3 vertebral body. This is probably a metastasis. There is no compression fracture. No definite interval change since 09/06/2016 3. Sclerotic and destructive abnormality within the right iliac bone consistent with metastatic disease. Interpreted and Authenticated by: Hector Jones 08/14/17
[2017-08-14 06:44] LABS: ALT/SGPT 29 U/l (0-40); Albumin 3.7 gm/dL (3.2-5.2); Albumin/Globulin Ratio 1.9 (1.0-2.3); Alkaline Phosphatase 56 U/L (39-117); Bilirubin,Direct < 0.2 mg/dL (0.0-0.3); Blood Urea Nitrogen 12 mg/dl (8-23); Gamma Glutamyl Transpeptidase 29 U/L (5-36); Uric Acid 2.8 mg/dL (2.5-8.0)
[2017-08-14] MEDS: PANTOPRAZOLE 40 MG TABLET PO SCH (07:22)
[2017-08-14] MEDS: INSULIN LISPRO 1 UNIT/0.01 ML UNIT SQ SCH ×4 (07:26→21:32)
[2017-08-14] MEDS: DOCUSATE SODIUM 100 MG CAPSULE PO SCH ×2 (09:03→21:20)
[2017-08-14] MEDS: HEPARIN 5,000 UNIT/ML VIAL SQ SCH ×2 (09:03→21:20)
[2017-08-14] MEDS: levETIRAcetam 500 MG TABLET PO SCH ×2 (09:03→21:20)
[2017-08-14] MEDS: DEXAMETHASONE 4 MG TABLET PO SCH ×2 (09:04→21:21)
[2017-08-14] MEDS: metFORMIN 500 MG TABLET PO SCH (09:04)
[2017-08-14] MEDS: morphine 15 MG TAB.SR.12H PO SCH (09:04)
[2017-08-14] MEDS: cefTRIAXone 1 GM in DEXTROSE 5% IN WATER 50 ML IV SCH (09:11)
[2017-08-14] MEDS: HYDROmorphone 2 MG/ML VIAL IV PRN (14:52)
[2017-08-14] MEDS: ACETAMINOPHEN 650 MG/65 ML BOTTLE IV PRN (14:57)
--- NOTE | 2017-08-14 16:04 | Internal Med Progress Note ---
Medical - PN: Subj Patient information: Note initiated : 08/14/17 at 3:59 pm Service Date, if different from initiated Date: [] Patient: Lulu Emmanuel a 71 y/o F admitted on 08/13/17 for weakness. Chief Complaint: [] Interval history: Ms. Emmanuel is a 71 year old F with history of diabetes metastatic breast cancer comes to the emergency room with complaints of back pain. According to the patient she has been having back pain for the last 2 weeks. She was seen in the [facility] for same and was admitted to that facility. She has had a scan done a CAT scan which showed a pathological fracture. She was given pain management and discharged home. Patient notes that she was getting better and therefore decided to go home. After going home she notes that the pain has been progressively getting worse, she fell down today because of severe pain and is unable to care for herself at this point. Patient therefore came to the hospital to see if she could be placed to a [facility]. The patient during the stay in the emergency room also possibly had a seizure which was witnessed by the ER physician. During my conversation with the patient the patient noted that she had no recollection of the said seizure. The patient does have a history of seizures and takes Keppra for same. Last seizure was approximately a year ago. The patient is able to move all her limbs and denies any focal neurological deficit, denies any bowel bladder incontinence. The patient's workup in the emergency showed normal hemoglobin and WBC count, normal platelets, unremarkable basic metabolic profile, UA possibly suggestive of UTI however the patient has no urinary symptoms. The patient notes that she has had a loop recorder in place to evaluate for any cardiac arrhythmia, however this is an MRI safe device. And she has had MRIs done after placement of this device. The patient did not bring any of her home medications for verification at this point in time. Given the fact that patient cannot be discharged back home due to intractable pain, possible UTI and seizure the patient is being admitted to the hospital for further evaluation. The patient is a DNR CODE STATUS August 13 Patient seen and examined, no acute overnight events, could not get an MRI due to implanted loop monitor, we have a 3 Ashley machine and the loop monitor is only a 1.5 Ashley. The patient otherwise has no new symptoms, still has back pain which she rates 10 out of 10 intermittently. We tried to get a CT scan this morning however the patient had a panic attack and the pain exacerbated. We started the patient on IV Tylenol as needed and scheduled Toradol and got the CT scans this afternoon. Reading is pending. Home medications for pain has been renewed. august 14 pt seen examined, no acute overnight issues pt still has pain during ambulation head ct and lumbar ct does are neg for acute pathology documents from outside hospital notes pelvic fracture, pain management for now, consider pain consult in AM pt wishes to go to SNF for placement. Pertinent ROS: Denies headache, dizziness Denies chest pain, palpitations Denies cough or shortness of breath Denies abdominal pain, nausea or vomiting. - Constitutional Vitals: Vital Signs Temp Pulse Resp BP Pulse Ox 98.7 F 75 16 127/77 97 08/14/17 15:35 08/14/17 04:00 08/14/17 15:35 08/14/17 15:35 08/14/17 15:35 Period Temp Pulse Resp BP Sys/Eastman Pulse Ox Last 24 Hr 97.2 F-98.7 F 68-75 12-22 127-137/77-88 96-100 Intake and Output 08/14/17 08/14/17 08/14/17 05:59 13:59 21:59 Intake Total 1000 / 1000 650 / 650 565 / 565 Output Total 1250 / 1250 900 / 900 Balance -250 / -250 650 / 650 -335 / -335 Intake & Output: Intake & Output 08/14/17 08/14/17 08/14/17 05:59 13:59 21:59 Intake Total 1000 / 1000 650 / 650 565 / 565 Output Total 1250 / 1250 900 / 900 Balance -250 / -250 650 / 650 -335 / -335 Intake: IV 1000 / 1000 50 / 50 65 / 65 Rocephin 1 gm In Dextrose 5% in 50 / 50 Water 50 ml @ 100 mls/hr IV DAILY [facility] Rx#:[id number] Oral 600 / 600 500 / 500 Output: Urine Catheter Amount 1250 / 1250 900 / 900 Other: Meal Lunch Percent of Meal Consumed 100% Feeding Ability Assist with Tray Set Up Exam: Constitutional; Afebrile, cooperative, alert, not in distress. Eyes- No icterus, , No periorbital swelling Neck- Midline trachea, supple Respiratory system: Air Entry equal on both sides, No crackles or wheezing, no rhonchi. CVS- Rate rhythm regular, S1,S2 heard, no gallop, no rub. Abdomen- Soft nontender abdomen, no organomegaly, no tenderness, no guarding or rigidity, RAILROAD TRACK INSPECTOR- AOOx3, moving all extremities, no gross focal deficit noted. Medical - PN: Obj Da - Labs CBC & Chem 7: 08/14/17 04:35 08/14/17 04:35 Labs: Abnormal Lab Results 08/14/17 08/14/17 08/13/17 04:35 04:35 04:35 RBC 3.72 L RDW 18.9 H Plt Count 115 L Gran % 82.9 H Lymph % (Auto) 7.5 L Lymph # (Auto) 0.5 L Lymphocytes % RBC Morphology Anisocytosis Ovalocytes Carbon Dioxide 21 L Glucose 127 H 109 H Calcium 7.8 L 7.7 L Phosphorus 2.5 L Total Protein 5.6 L 5.3 L Globulin 1.9 L 2.0 L Ur Specific [place] Urine Protein Ur Leukocyte Esterase Urine RBC Urine WBC Calcium Oxalate Crystal Urine Bacteria Urine Yeast (Budding) 08/13/17 08/12/17 08/12/17 04:35 23:05 20:21 RBC 3.64 L RDW 19.6 H Plt Count 132 L Gran % Lymph % (Auto) 13.8 L Lymph # (Auto) 1.1 L Lymphocytes % RBC Morphology Anisocytosis Ovalocytes Carbon Dioxide 21 L Glucose 109 H Calcium Phosphorus Total Protein Globulin Ur Specific [place] 1.036 H Urine Protein 100 A Ur Leukocyte Esterase 250 A Urine RBC 3 H Urine WBC 9 H Calcium Oxalate Crystal Many A Urine Bacteria Few A Urine Yeast (Budding) Few A 08/12/17 20:21 RBC RDW 17.9 H Plt Count Gran % Lymph % (Auto) Lymph # (Auto) Lymphocytes % 14 L RBC Morphology Abnorm A Anisocytosis 2+ A Ovalocytes 1+ A Carbon Dioxide Glucose Calcium Phosphorus Total Protein Globulin Ur Specific [place] Urine Protein Ur Leukocyte Esterase Urine RBC Urine WBC Calcium Oxalate Crystal Urine Bacteria Urine Yeast (Budding) Meds: Medications Acetaminophen (Tylenol) 650 mg PO Q6HP PRN PRN Reason: PAIN/FEVER > 101 Al Hydrox/Mg Hydrox/Simethicone (Maalox) 30 ml PO Q4HP PRN PRN Reason: Heartburn Albuterol Sulfate (Ventolin) 2.5 mg NEB Q2HP PRN PRN Reason: Shortness Of Breath Alprazolam (Xanax) 0.5 mg PO Q8HP PRN PRN Reason: Anxiety Last Admin: 08/13/17 13:03 Dose: 0.5 mg Bisacodyl (Dulcolax) 10 mg PO DAILYP PRN PRN Reason: Constipation Bisacodyl (Dulcolax) 10 mg [place] DAILYP PRN PRN Reason: Constipation Dexamethasone (Decadron) 2 mg PO BID [facility] Stop: 08/20/17 09:01 Last Admin: 08/14/17 09:04 Dose: 2 mg Dextrose (Dextrose 50%) 0 ml IV UD PRN PRN Reason: Hypoglycemia Diagnostic Test (Pha) (Accu-Chek) 1 each FS ACHS [facility] Last Admin: 08/14/17 11:45 Dose: 1 each Docusate Sodium (Colace) 100 mg PO BID [facility] Last Admin: 08/14/17 09:03 Dose: 100 mg Gabapentin (Neurontin) 900 mg PO HS [facility] Last Admin: 08/13/17 20:38 Dose: 900 mg Glucose (Insta-Glucose) 15 gm PO PRN PRN PRN Reason: Hypoglycemia Heparin Sodium (Porcine) (Heparin) 5,000 unit SQ Q12 [facility] Last Admin: 08/14/17 09:03 Dose: 5,000 unit Heparin Sodium (Porcine) (Heparin Flush) 5 ml IV Q12 [facility] Hydromorphone HCl (Dilaudid) 2 mg IV Q2HP PRN PRN Reason: PAIN LEVEL > 6 Last Admin: 08/14/17 14:52 Dose: 2 mg Ceftriaxone Sodium 1 gm/ (Dextrose) 50 mls @ 100 mls/hr IV DAILY [facility] Last Infusion: 08/14/17 09:45 Dose: Infused Acetaminophen (Ofirmev) 650 mg in 65 mls @ 130 mls/hr IV Q6HP PRN PRN Reason: PAIN/FEVER > 101 Last Infusion: 08/14/17 15:20 Dose: Infused Insulin Human Lispro (Humalog) 0 unit SQ ACHS [facility] PRN Reason: Protocol Last Admin: 08/14/17 11:46 Dose: Not Given Ketorolac Tromethamine (Toradol) 15 mg IV Q6 [facility] Stop: 08/15/17 12:01 Last Admin: 08/14/17 11:54 Dose: 15 mg Levetiracetam (Keppra) 500 mg PO HS [facility] Last Admin: 08/13/17 20:39 Dose: 500 mg Levetiracetam (Keppra) 1,000 mg PO DAILY [facility] Last Admin: 08/14/17 09:03 Dose: 1,000 mg Magnesium Hydroxide (Milk Of Magnesia) 30 ml PO DAILYP PRN PRN Reason: Constipation Metformin HCl (Glucophage) 500 mg PO DAILY [facility] Last Admin: 08/14/17 09:04 Dose: Not Given Methocarbamol (Robaxin) 750 mg PO Q8HP PRN PRN Reason: Muscle Spasm Last Admin: 08/13/17 13:46 Dose: 750 mg Metoclopramide HCl (Reglan) 10 mg PO Q6HP PRN PRN Reason: NAUSEA AND VOMITING Morphine Sulfate (Ms Contin) 15 mg PO BID [facility] Last Admin: 08/14/17 09:04 Dose: 15 mg Ondansetron HCl (Zofran) 4 mg IV Q6HP PRN PRN Reason: Nausea And Vomiting Last Admin: 08/13/17 13:06 Dose: 4 mg Ondansetron HCl (Zofran Odt) 4 mg SL Q4HP PRN PRN Reason: Nausea Oxycodone HCl (Roxicodone) 5 - 10 mg PO Q4HP PRN PRN Reason: Pain Last Admin: 08/14/17 04:10 Dose: 5 mg Pantoprazole Sodium (Protonix) 40 mg PO QAMAC [facility] Last Admin: 08/14/17 07:22 Dose: 40 mg Polyethylene Glycol (Miralax) 17 gm PO DAILYP PRN PRN Reason: Constipation Prochlorperazine Maleate (Compazine) 10 mg PO Q8HP PRN PRN Reason: Nausea Senna (Senokot) 2 tab PO HS [facility] Last Admin: 08/13/17 20:39 Dose: 2 tab Sodium Chloride (Saline Flush) 10 ml IV Q12 [facility] Last Admin: 08/14/17 14:53 Dose: 10 ml Medical - PN: A/P - Time Spent With Patient Total time spent is greater than 50% in coordination of care (as documented) at patient's floor/unit and/or counseling patient: - Narrative A/P Narrative: A/P Pathological Vertebral Fracture Seizure Disorder Urinary Tract Infection Diabetes Hypertension Intractable Pain, secondary metastatic disease, Pathological fracture Plan IV dilaudid for pain control, start IV Toradol and IV Tylenol as needed. HOme meds resumed neurochecks q4hrs, Iv keppra x 1, resume home dose of Keppra, no seizures noted iv rocephin for uti, await culture results, no growth so far X-ray of the right knee and left knee does not show any evidence of metastases, CT head and lumbar CT is negative, Can consider repeat Pelvic imaging to see if she is a candidate for localized radiation therapy vs fixation by ortho. DVT hep sq' DNR code status Diabetic Diet. Medical - PN: Qual - VTE Deep Vein Thrombosis/Pulmonary Embolism Present on Admission: No
[2017-08-14] MEDS: SENNOSIDES 1 TABLET PO SCH ×2 (21:20→21:25)
[2017-08-14] MEDS: GABAPENTIN 300 MG CAPSULE PO SCH (21:20)
[2017-08-14] MEDS: morphine 30 MG TAB.SR.12H PO SCH (21:21)
[2017-08-15] MEDS: oxyCODONE HCL 5 MG TABLET PO PRN ×3 (00:33→19:00)
[2017-08-15] MEDS: KETOROLAC 30 MG/ML VIAL IV SCH ×3 (00:33→13:54)
[2017-08-15 05:36] LABS: Basophils # (Auto) 0 K/mcL (0.0-0.3); Basophils % (Auto) 0.4 % (0.0-2.0); Eosinophils # (Auto) 0.1 K/mcL (0.0-0.7); Eosinophils % (Auto) 2.3 % (0.0-7.0); Granulocytes % (Auto) 77.6 % (38.0-78.0); Lymphocytes # (Auto) 0.6 K/mcL (1.5-4.8); Lymphocytes % (Auto) 11.4 % (15.5-49.0); Mean Cell Volume 99.2 fL (80.0-100.0); Mean Corpuscular HGB Conc 33.6 g/dL (31.0-36.0); Mean Corpuscular Hemoglobin 33.3 pg (26.0-34.0); Monocytes # (Auto) 0.5 K/mcL (0.1-0.9); Monocytes % (Auto) 8.3 % (1.0-12.0); Platelet Count 112 K/mcL (140-440); Red Cell Distribution Width 18.9 % (11.5-14.5)
[2017-08-15] MEDS: morphine 30 MG TAB.SR.12H PO SCH ×2 (06:05→20:53)
[2017-08-15 06:12] LABS: ALT/SGPT 23 U/l (0-40); Albumin 3.4 gm/dL (3.2-5.2); Albumin/Globulin Ratio 1.9 (1.0-2.3); Alkaline Phosphatase 49 U/L (39-117); Bilirubin,Direct < 0.2 mg/dL (0.0-0.3); Blood Urea Nitrogen 17 mg/dl (8-23); Gamma Glutamyl Transpeptidase 27 U/L (5-36); Uric Acid 3.1 mg/dL (2.5-8.0)
[2017-08-15] MEDS: INSULIN LISPRO 1 UNIT/0.01 ML UNIT SQ SCH ×4 (07:38→20:46)
[2017-08-15] MEDS: PANTOPRAZOLE 40 MG TABLET PO SCH (07:42)
[2017-08-15] MEDS: levETIRAcetam 500 MG TABLET PO SCH ×2 (08:46→20:52)
[2017-08-15] MEDS: DEXAMETHASONE 4 MG TABLET PO SCH ×2 (08:46→20:52)
[2017-08-15] MEDS: DOCUSATE SODIUM 100 MG CAPSULE PO SCH ×2 (08:46→20:52)
[2017-08-15] MEDS: metFORMIN 500 MG TABLET PO SCH (08:47)
[2017-08-15] MEDS: HEPARIN 5,000 UNIT/ML VIAL SQ SCH ×2 (08:47→20:54)
[2017-08-15] MEDS: cefTRIAXone 1 GM in DEXTROSE 5% IN WATER 50 ML IV SCH (08:47)
[2017-08-15] MEDS: 0.9 % SODIUM CHLORIDE 10 ML SYRINGE IV SCH ×2 (09:06→20:54)
[2017-08-15] MEDS: sitaGLIPtin 100 MG TABLET PO SCH (12:06)
[2017-08-15] MEDS: ONDANSETRON 4 MG/2 ML VIAL IV PRN (16:03)
[2017-08-15] MEDS: GABAPENTIN 300 MG CAPSULE PO SCH (20:52)
[2017-08-15] MEDS: SENNOSIDES 1 TABLET PO SCH (20:53)
--- NOTE | 2017-08-15 22:26 | Internal Med Progress Note ---
Medical - PN: Subj Patient information: Note initiated : 08/15/17 at 10:22 pm Service Date, if different from initiated Date: [] Patient: Lulu Emmanuel a 71 y/o F admitted on 08/13/17 for Weakness/Intractable Pain. Interval history: Ms. Emmanuel is a 71 year old F with history of diabetes metastatic breast cancer comes to the emergency room with complaints of back pain. According to the patient she has been having back pain for the last 2 weeks. She was seen in the [facility] for same and was admitted to that facility. She has had a scan done a CAT scan which showed a pathological fracture. She was given pain management and discharged home. Patient notes that she was getting better and therefore decided to go home. After going home she notes that the pain has been progressively getting worse, she fell down today because of severe pain and is unable to care for herself at this point. Patient therefore came to the hospital to see if she could be placed to a senior living. The patient during the stay in the emergency room also possibly had a seizure which was witnessed by the ER physician. During my conversation with the patient the patient noted that she had no recollection of the said seizure. The patient does have a history of seizures and takes Keppra for same. Last seizure was approximately a year ago. The patient is able to move all her limbs and denies any focal neurological deficit, denies any bowel bladder incontinence. The patient's workup in the emergency showed normal hemoglobin and WBC count, normal platelets, unremarkable basic metabolic profile, UA possibly suggestive of UTI however the patient has no urinary symptoms. The patient notes that she has had a loop recorder in place to evaluate for any cardiac arrhythmia, however this is an MRI safe device. And she has had MRIs done after placement of this device. The patient did not bring any of her home medications for verification at this point in time. Given the fact that patient cannot be discharged back home due to intractable pain, possible UTI and seizure the patient is being admitted to the hospital for further evaluation. The patient is a DNR CODE STATUS August 13 Patient seen and examined, no acute overnight events, could not get an MRI due to implanted loop monitor, we have a 3 Ashley machine and the loop monitor is only a 1.5 Ashley. The patient otherwise has no new symptoms, still has back pain which she rates 10 out of 10 intermittently. We tried to get a CT scan this morning however the patient had a panic attack and the pain exacerbated. We started the patient on IV Tylenol as needed and scheduled Toradol and got the CT scans this afternoon. Reading is pending. Home medications for pain has been renewed. august 14 pt seen examined, no acute overnight issues pt still has pain during ambulation head ct and lumbar ct does are neg for acute pathology documents from outside hospital notes pelvic fracture, pain management for now, consider pain consult in AM pt wishes to go to SNF for placement. August 15 Pain better controlled on increased dose of MS contin. Was able to sit up at edge of bed with PT. Discussed case with dr Boss,pt's oncologist today. Last PET-scan in May 2017 was negative for bone mets. Patient has had XRT for L3 bone met. Currently only on Xeloda. Off Letrozole. Plan d/c to SNF in am. - Constitutional Vitals: Vital Signs Temp Pulse Resp BP Pulse Ox 98.4 F 81 18 152/89 96 08/15/17 19:26 08/15/17 19:26 08/15/17 19:26 08/15/17 19:26 08/15/17 19:26 Period Temp Pulse Resp BP Sys/Eastman Pulse Ox Last 24 Hr 97.6 F-98.4 F 63-81 18-18 130-152/79-89 96-98 Intake and Output 08/15/17 08/15/17 08/16/17 13:59 21:59 05:59 Intake Total 50 / 50 Output Total 600 / 600 Balance -550 / -550 Weight 284 lb 286 lb Patient Weight 08/16/17 05:59 Weight 286 lb Intake & Output: Intake & Output 08/15/17 08/15/17 08/16/17 13:59 21:59 05:59 Intake Total 50 / 50 Output Total 600 / 600 Balance -550 / -550 Weight 284 lb 286 lb Intake: IV 50 / 50 Rocephin 1 gm In Dextrose 5% in 50 / 50 Water 50 ml @ 100 mls/hr IV DAILY [facility] Rx#:[id number] Output: Urine Catheter Amount 600 / 600 Other: Stool Size Large Stool Color Black Stool Consistency Formed # Bowel Movements 1 General appearance: morbidly obese, no acute distress - Respiratory Respiratory exam: Present: normal respiratory exam - Cardiovascular Cardiovascular exam: Present: normal rate and rhythm - GI/Abdominal GI/Abdominal exam: Present: normal bowel sounds, soft - Extremities Exam Extremities exam: Present: normal inspection Medical - PN: Obj Da - Labs CBC & Chem 7: 08/15/17 04:35 08/15/17 04:35 Labs: Abnormal Lab Results 08/15/17 08/15/17 08/14/17 04:35 04:35 04:35 RBC 3.40 L Hgb 11.4 L Hct 33.8 L RDW 18.9 H Plt Count 112 L Gran % Lymph % (Auto) 11.4 L Lymph # (Auto) 0.6 L Carbon Dioxide Glucose 148 H 127 H Calcium 8.1 L 7.8 L Phosphorus 2.2 L 2.5 L Total Protein 5.2 L 5.6 L Globulin 1.8 L 1.9 L Ur Specific [place] Urine Protein Ur Leukocyte Esterase Urine RBC Urine WBC Calcium Oxalate Crystal Urine Bacteria Urine Yeast (Budding) 08/14/17 08/13/17 08/13/17 04:35 04:35 04:35 RBC 3.72 L 3.64 L Hgb Hct RDW 18.9 H 19.6 H Plt Count 115 L 132 L Gran % 82.9 H Lymph % (Auto) 7.5 L 13.8 L Lymph # (Auto) 0.5 L 1.1 L Carbon Dioxide 21 L Glucose 109 H Calcium 7.7 L Phosphorus Total Protein 5.3 L Globulin 2.0 L Ur Specific [place] Urine Protein Ur Leukocyte Esterase Urine RBC Urine WBC Calcium Oxalate Crystal Urine Bacteria Urine Yeast (Budding) 08/12/17 23:05 RBC Hgb Hct RDW Plt Count Gran % Lymph % (Auto) Lymph # (Auto) Carbon Dioxide Glucose Calcium Phosphorus Total Protein Globulin Ur Specific [place] 1.036 H Urine Protein 100 A Ur Leukocyte Esterase 250 A Urine RBC 3 H Urine WBC 9 H Calcium Oxalate Crystal Many A Urine Bacteria Few A Urine Yeast (Budding) Few A Meds: Medications Acetaminophen (Tylenol) 650 mg PO Q6HP PRN PRN Reason: PAIN/FEVER > 101 Al Hydrox/Mg Hydrox/Simethicone (Maalox) 30 ml PO Q4HP PRN PRN Reason: Heartburn Albuterol Sulfate (Ventolin) 2.5 mg NEB Q2HP PRN PRN Reason: Shortness Of Breath Alprazolam (Xanax) 0.5 mg PO Q8HP PRN PRN Reason: Anxiety Last Admin: 08/13/17 13:03 Dose: 0.5 mg Bisacodyl (Dulcolax) 10 mg PO DAILYP PRN PRN Reason: Constipation Bisacodyl (Dulcolax) 10 mg ID DAILYP PRN PRN Reason: Constipation Dexamethasone (Decadron) 2 mg PO BID [facility] Stop: 08/20/17 09:01 Last Admin: 08/15/17 20:52 Dose: 2 mg Dextrose (Dextrose 50%) 0 ml IV UD PRN PRN Reason: Hypoglycemia Diagnostic Test (Pha) (Accu-Chek) 1 each FS ACHS [facility] Last Admin: 08/15/17 20:46 Dose: 1 each Docusate Sodium (Colace) 100 mg PO BID [facility] Last Admin: 08/15/17 20:52 Dose: 100 mg Gabapentin (Neurontin) 900 mg PO HS [facility] Last Admin: 08/15/17 20:52 Dose: 900 mg Glucose (Insta-Glucose) 15 gm PO PRN PRN PRN Reason: Hypoglycemia Heparin Sodium (Porcine) (Heparin) 5,000 unit SQ Q12 [facility] Last Admin: 08/15/17 20:54 Dose: 5,000 unit Heparin Sodium (Porcine) (Heparin Flush) 5 ml IV Q12 [facility] Last Admin: 08/15/17 20:53 Dose: 5 ml Hydromorphone HCl (Dilaudid) 2 mg IV Q2HP PRN PRN Reason: PAIN LEVEL > 6 Last Admin: 08/14/17 14:52 Dose: 2 mg Ceftriaxone Sodium 1 gm/ (Dextrose) 50 mls @ 100 mls/hr IV DAILY [facility] Last Infusion: 08/15/17 19:43 Dose: Infused Acetaminophen (Ofirmev) 650 mg in 65 mls @ 130 mls/hr IV Q6HP PRN PRN Reason: PAIN/FEVER > 101 Last Infusion: 08/14/17 15:20 Dose: Infused Insulin Human Lispro (Humalog) 0 unit SQ ACHS [facility] PRN Reason: Protocol Last Admin: 08/15/17 20:46 Dose: Not Given Levetiracetam (Keppra) 500 mg PO HS [facility] Last Admin: 08/15/17 20:52 Dose: 500 mg Levetiracetam (Keppra) 1,000 mg PO DAILY [facility] Last Admin: 08/15/17 08:46 Dose: 1,000 mg Magnesium Hydroxide (Milk Of Magnesia) 30 ml PO DAILYP PRN PRN Reason: Constipation Metformin HCl (Glucophage) 500 mg PO DAILY [facility] Last Admin: 08/15/17 08:47 Dose: Not Given Methocarbamol (Robaxin) 750 mg PO Q8HP PRN PRN Reason: Muscle Spasm Last Admin: 08/13/17 13:46 Dose: 750 mg Metoclopramide HCl (Reglan) 10 mg PO Q6HP PRN PRN Reason: NAUSEA AND VOMITING Morphine Sulfate (Ms Contin) 30 mg PO BID [facility] Last Admin: 08/15/17 20:53 Dose: 30 mg Ondansetron HCl (Zofran) 4 mg IV Q6HP PRN PRN Reason: Nausea And Vomiting Last Admin: 08/15/17 16:03 Dose: 4 mg Ondansetron HCl (Zofran Odt) 4 mg SL Q4HP PRN PRN Reason: Nausea Oxycodone HCl (Roxicodone) 5 - 10 mg PO Q4HP PRN PRN Reason: Pain Last Admin: 08/15/17 19:00 Dose: 10 mg Pantoprazole Sodium (Protonix) 40 mg PO QAMAC [facility] Last Admin: 08/15/17 07:42 Dose: 40 mg Polyethylene Glycol (Miralax) 17 gm PO DAILYP PRN PRN Reason: Constipation Prochlorperazine Maleate (Compazine) 10 mg PO Q8HP PRN PRN Reason: Nausea Senna (Senokot) 2 tab PO HS [facility] Last Admin: 08/15/17 20:53 Dose: 2 tab Sitagliptin Phosphate (Januvia) 100 mg PO DAILY [facility] Last Admin: 08/15/17 12:06 Dose: 100 mg Sodium Chloride (Saline Flush) 10 ml IV Q12 [facility] Last Admin: 08/15/17 20:54 Dose: 10 ml Medical - PN: A/P - Time Spent With Patient Total time spent is greater than 50% in coordination of care (as documented) at patient's floor/unit and/or counseling patient: 15 - 24 minutes - Narrative A/P Narrative: A/P Pathological Vertebral Fracture Seizure Disorder Urinary Tract Infection Diabetes Hypertension Intractable Pain, secondary metastatic disease, Pathological fracture Plan Off IV pain meds. Pain controlled on MS contin 30 mg BID and prn oxycodone No evidence of bone mets on PET scan in May 2017 Urine culture: mixed jessica. Discontinue antibiotics. Tx to SNF in am Medical - PN: Qual - VTE Deep Vein Thrombosis/Pulmonary Embolism Present on Admission: No
[2017-08-16] MEDS: oxyCODONE HCL 5 MG TABLET PO PRN ×3 (00:51→10:49)
[2017-08-16] MEDS: METHOCARBAMOL 750 MG TABLET PO PRN (05:43)
[2017-08-16 05:57] LABS: ALT/SGPT 22 U/l (0-40); Albumin 3.4 gm/dL (3.2-5.2); Albumin/Globulin Ratio 1.6 (1.0-2.3); Alkaline Phosphatase 49 U/L (39-117); Bilirubin,Direct < 0.2 mg/dL (0.0-0.3); Blood Urea Nitrogen 20 mg/dl (8-23); Gamma Glutamyl Transpeptidase 28 U/L (5-36); Uric Acid 3.2 mg/dL (2.5-8.0)
[2017-08-16 06:59] LABS: Basophils # (Auto) 0 K/mcL (0.0-0.3); Basophils % (Auto) 0.2 % (0.0-2.0); Eosinophils # (Auto) 0.1 K/mcL (0.0-0.7); Eosinophils % (Auto) 1.8 % (0.0-7.0); Granulocytes % (Auto) 79.5 % (38.0-78.0); Lymphocytes # (Auto) 0.8 K/mcL (1.5-4.8); Lymphocytes % (Auto) 11.5 % (15.5-49.0); Mean Cell Volume 98.5 fL (80.0-100.0); Mean Corpuscular HGB Conc 33.2 g/dL (31.0-36.0); Mean Corpuscular Hemoglobin 32.7 pg (26.0-34.0); Monocytes # (Auto) 0.5 K/mcL (0.1-0.9); Platelet Count 98 K/mcL (140-440); Red Cell Distribution Width 18.6 % (11.5-14.5)
[2017-08-16] MEDS: PANTOPRAZOLE 40 MG TABLET PO SCH (07:11)
[2017-08-16] MEDS: INSULIN LISPRO 1 UNIT/0.01 ML UNIT SQ SCH (07:11)
--- NOTE | 2017-08-16 08:25 | Discharge Summary ---
Medical - DS: Prov Patient information: Note initiated : 08/16/17 at 8:17 am Service Date, if different from initiated Date: [] Patient: Lulu Emmanuel 71 y/o F admitted on 08/13/17 for Weakness/Intractable Pain. Date of admission: 08/13/17 02:11 Discharge date: 08/16/17 Primary care physician: Enma Boss Consults: 08/15/17 10:14 Consult to Physician [CONS] Routine Comment: Poss SNF Consulting Provider: [facility] Reason For Exam: Physician to Consult Medical - DS: Meds - Discharge Medications Prescriptions: Dexamethasone 2 mg PO DAILY #30 tablet metFORMIN [Glucophage] 500 mg PO BIDCC #90 tablet oxyCODONE HCL [Oxycodone HCl] 5 - 10 mg PO Q4HP PRN #90 capsule PRN Reason: Pain Active and Home Medications: Home Medications ALPRAZolam [Xanax] 0.5 mg PO Q8HP PRN 08/13/17 [History Confirmed 08/13/17 Last Taken Unknown] Acetaminophen 650 mg PO Q4HP PRN 08/13/17 [History Confirmed 08/13/17 Last Taken Unknown] Bisacodyl [Dulcolax] 10 mg PO DAILYP PRN 08/13/17 [History Confirmed 08/13/17 Last Taken Unknown] Bisacodyl [Dulcolax] 10 mg AR DAILYP PRN 08/13/17 [History Confirmed 08/13/17 Last Taken Unknown] Dexamethasone 2 mg PO BID 08/13/17 [History Confirmed 08/13/17 Last Taken 09:00] Dextrose [Glucose] 15 gm PO PRN PRN 08/13/17 [History Confirmed 08/13/17 Last Taken Unknown] Docusate Sodium [Dulcolax Stool Softener] 100 mg PO BID 08/13/17 [History Confirmed 08/13/17 Last Taken 08/12/17 09:00] Gabapentin [Neurontin] 900 mg PO HS 08/13/17 [History Confirmed 08/13/17 Last Taken 08/11/17 21:00] Glucagon HCl 1 mg IM PRN PRN 08/13/17 [History Confirmed 08/13/17 Last Taken Unknown] Magnesium Hydroxide [Milk of Magnesia] 30 ml PO DAILYP PRN 08/13/17 [History Confirmed 08/13/17 Last Taken Unknown] Methocarbamol [Robaxin-750] 750 mg PO Q8HP PRN 08/13/17 [History Confirmed 08/13 Last Taken Unknown] Metoclopramide HCl [Metoclopramide HCl Odt] 10 mg PO Q6HP PRN 08/13/17 [History Confirmed 08/13/17 Last Taken Unknown] Ondansetron HCl [Zofran ODT] 4 mg SL Q4HP PRN 08/13/17 [History Confirmed Last Taken Unknown] Polyethylene Glycol [Polyox Wsr-301] 17 gm MC DAILYP PRN 08/13/17 [History Confirmed 08/13/17 Last Taken Unknown] Promethazine [Phenergan] 25 mg AR Q6HP PRN 08/13/17 [History Confirmed 08/13/17 Last Taken Unknown] Sennosides [Natural Vegetable Laxative] 8.6 mg PO HSP PRN 08/13/17 [History Confirmed 08/13/17 Last Taken Unknown] levETIRAcetam [Keppra] 1,000 mg PO DAILY 08/13/17 [History Confirmed 08/13/17 Last Taken 08/12/17 09:00] levETIRAcetam [Levetiracetam] 500 mg PO HS 08/13/17 [History Confirmed 08/13/17 Last Taken 08/11/17 21:00] metFORMIN [Glucophage] 500 mg PO DAILY 08/13/17 [History Confirmed 08/13/17 Last Taken 08/12/17 09:00] morphine [Ms Contin] 15 mg PO BID 08/13/17 [History Confirmed 08/13/17 Last Taken 08/12/17 09:00] Calcitonin,[place],Synthetic [Calcitonin-[place]] 200 unit INTRANASAL DAILY [History Confirmed 08/15/17 Last Taken Unknown] Cholecalciferol (Vitamin D3) [Vitamin D] 2,000 unit PO DAILY 08/15/17 [History Confirmed 08/15/17 Last Taken Unknown] Hydrochlorothiazide [Oretic] 12.5 mg PO Q48H 08/15/17 [History Confirmed Last Taken Unknown] Ibuprofen 400 mg PO DAILYP PRN 08/15/17 [History Confirmed 08/15/17 Last Taken Unknown] Lovastatin [Mevacor] 20 mg PO DAILY 08/15/17 [History Confirmed 08/15/17 Last Taken Unknown] oxyCODONE [OxyCONTIN] 10 - 20 mg PO Q4 08/15/17 [History Confirmed 08/15/17 Last Taken Unknown] sitaGLIPtin [Januvia] 100 mg PO DAILY 08/15/17 [History Confirmed 08/15/17 Last Taken 08/12/17] Medical - DS: Hosp Hospital course: Ms. Emmanuel is a 71 year old F with history of diabetes metastatic breast cancer comes to the emergency room with complaints of back pain. According to the patient she has been having back pain for the last 2 weeks. She was seen in the [facility] for same and was admitted to that facility. She has had a scan done a CAT scan which showed a fracture in R ischium, possible pathological. She was given pain management and discharged home. Patient notes that she was getting better and therefore decided to go home. After going home she notes that the pain has been progressively getting worse, she fell down today because of severe pain and is unable to care for herself at this point. Patient therefore came to the hospital to see if she could be placed to a longterm. The patient during the stay in the emergency room also possibly had a seizure which was witnessed by the ER physician. During my conversation with the patient the patient noted that she had no recollection of the said seizure. The patient does have a history of seizures and takes Keppra for same. Last seizure was approximately a year ago. The patient is able to move all her limbs and denies any focal neurological deficit, denies any bowel bladder incontinence. The patient's workup in the emergency showed normal hemoglobin and WBC count, normal platelets, unremarkable basic metabolic profile, UA possibly suggestive of UTI however the patient has no urinary symptoms. The patient notes that she has had a loop recorder in place to evaluate for any cardiac arrhythmia, however this is an MRI safe device. And she has had MRIs done after placement of this device. The patient did not bring any of her home medications for verification at this point in time. Given the fact that patient cannot be discharged back home due to intractable pain, possible UTI and seizure the patient is being admitted to the hospital for further evaluation. The patient is a DNR CODE STATUS August 13 Patient seen and examined, no acute overnight events, could not get an MRI due to implanted loop monitor, we have a 3 Ashley machine and the loop monitor is only a 1.5 Ashley. The patient otherwise has no new symptoms, still has back pain which she rates 10 out of 10 intermittently. We tried to get a CT scan this morning however the patient had a panic attack and the pain exacerbated. We started the patient on IV Tylenol as needed and scheduled Toradol and got the CT scans this afternoon. Reading is pending. Home medications for pain has been renewed. august 14 pt seen examined, no acute overnight issues pt still has pain during ambulation head ct and lumbar ct does are neg for acute pathology documents from outside hospital notes pelvic fracture, pain management for now, consider pain consult in AM pt wishes to go to SNF for placement. August 15 Pain better controlled on increased dose of MS contin. Was able to sit up at edge of bed with PT. Discussed case with dr Boss,pt's oncologist today. Last PET-scan in May 2017 was negative for bone mets. Patient has had XRT for L3 bone met. Currently only on Xeloda. Off Letrozole. Plan d/c to SNF in am. August 16: Pain fairly well controlled. Not tolerating supine position. Would prefer reclining chair. Tx to SNF for rehab. Keep mcgowan in due to very limited mobility at this time. Plan to remove in few days. Discharge diagnosis: Intractable back pain, Breast cancer with mets Secondary discharge diagnosis: Breast cancer with liver mets and bone mets. No evidence of liver mets after chemotherapy. S/P XRT for bone mets. Bone scan May 2017: no mets. Morbid obesity DM HTN Reason for admission: Intractable back pain, falls Pertinent studies/significant findings: CT-lumbar spine: CLINICAL INFORMATION: History of breast cancer. Weakness. Back pain. TECHNIQUE: Axial images from T11 through the sacrum. Sagittal and coronally reformatted images. COMPARISON: Outside MRI scan dated 09/06/2016 FINDINGS: Examination is somewhat suboptimal due to this patient's large size. There is a lesion within the L3 vertebral body. This is predominantly left-sided. There is sclerosis and lucency. Appearance is essentially unchanged. No vertebral body collapse. No significant retropulsion. Posterior cortex is thinned or destroyed. This may be a primary bone lesion but metastasis is not excluded. No significant interval change is identified. Other lumbar vertebral bodies are negative. No other lytic or sclerotic lesions. Sacrum is negative. No sacral insufficiency fracture or destructive lesion. There is sclerosis within the right iliac bone consistent with metastasis. There is cortical destruction but no detectable fracture. There is also mild sclerosis along the iliac side of the left sacroiliac joint. This may be benign. Multilevel degenerative disc disease. There are vacuum discs at L2-3, L3-4, L4-5. No detectable soft disc herniation. Degenerative disc disease and facet arthropathy at L2-3. There is probable mild spinal canal stenosis. Degenerative disc disease and facet arthropathy at L3-4. There is moderate spinal canal stenosis. Degenerative disc disease and facet arthropathy at L4-5. Moderate to severe spinal canal stenosis. No paraspinal soft tissue mass. IMPRESSION: 1. Multilevel degenerative disc disease and facet arthropathy. Spinal canal stenoses as above 2. Mixed sclerotic and lytic lesion within the L3 vertebral body. This is probably a metastasis. There is no compression fracture. No definite interval change since 09/06/2016 3. Sclerotic and destructive abnormality within the right iliac bone consistent with metastatic disease. - Time Spent with Patient Total time spent providing and/or coordinating discharge services: Greater than 30 minutes Medical - DS: Exam - Constitutional Vitals: Vital Signs Temp Pulse Resp BP BP Pulse Ox 08/16/17 07:25 97.0 F 70 16 145/90 98 08/16/17 04:00 97.6 F 66 16 154/84 97 08/15/17 23:39 97.0 F 69 16 166/99 98 08/15/17 19:26 98.4 F 81 18 152/89 96 08/15/17 15:53 98.1 F 18 142/87 97 08/15/17 11:54 97.8 F 18 136/79 98 Intake and Output 08/15/17 08/16/17 08/16/17 21:59 05:59 13:59 Intake Total 50 / 50 300 / 300 Output Total 600 / 600 550 / 550 Balance -550 / -550 -250 / -250 Intake: IV 50 / 50 Rocephin 1 gm In Dextrose 5% in 50 / 50 Water 50 ml @ 100 mls/hr IV DAILY [facility] Rx#:[id number] Oral 300 / 300 Output: Urine Catheter Amount 600 / 600 550 / 550 Other: Stool Size Large Stool Color Black Stool Consistency Formed # Bowel Movements 1 Weight 286 lb Medical - DS: Data Procedures and tests throughout hospitalization: CT-lumbar spine: IMPRESSION: 1. Multilevel degenerative disc disease and facet arthropathy. Spinal canal stenoses as above 2. Mixed sclerotic and lytic lesion within the L3 vertebral body. This is probably a metastasis. There is no compression fracture. No definite interval change since 09/06/2016 3. Sclerotic and destructive abnormality within the right iliac bone consistent with metastatic disease. CT-head: negative for pathology Labs on day of discharge: Labs from last 24 hours 08/16/17 08/16/17 04:06 04:06 WBC 7.3 RBC 3.70 L Hgb 12.1 Hct 36.4 MCV 98.5 MCH 32.7 MCHC 33.2 RDW 18.6 H Plt Count 98 L MPV 10.2 Gran % 79.5 H Lymph % (Auto) 11.5 L [place] % (Auto) 7.0 Eos % (Auto) 1.8 Baso % (Auto) 0.2 Gran # 5.8 Lymph # (Auto) 0.8 L [place] # (Auto) 0.5 Eos # (Auto) 0.1 Baso # (Auto) 0 Differential Comment Sodium 139 Potassium 4.9 Chloride 108 Carbon Dioxide 21 L Anion Gap 10.0 BUN 20 Creatinine 0.8 GFR Calculation 75 Glucose 137 H Uric Acid 3.2 Calcium 8.6 Phosphorus 2.8 Magnesium 2.2 Total Bilirubin 0.3 Direct Bilirubin < 0.2 GGT 28 AST 24 ALT 22 Alkaline Phosphatase 49 Lactate Dehydrogenase 259 H Total Protein 5.5 L Albumin 3.4 Globulin 2.1 L Albumin/Globulin Ratio 1.6 Triglycerides 110 Medical - DS: A/P - Patient/Caregiver Discharge Instructions Activity: as per physical therapy, increase activity as tolerated Diet: Consistent Carbohydrate Additional Instructions: Remove mcgowan catheter in few days Recommend recliner chair for daytime comfort and sleeping (suspect KIERRA) Prescriptions: Capecitabine [Xeloda] 500 mg PO DAILY #1 tablet Dexamethasone 2 mg PO DAILY #30 tablet metFORMIN [Glucophage] 500 mg PO BIDCC #90 tablet oxyCODONE HCL [Oxycodone HCl] 5 - 10 mg PO Q4HP PRN #90 capsule PRN Reason: Pain - Follow up Plan Follow up with: Enma Boss [Primary Care Provider] - Disposition: Xfer SNF Prognosis: Fair Rehab Potential: Fair I certify that the patient requires SNF services: Yes Overall status at discharge: patient is progressing back to baseline Medical - DS: Qual - VTE Deep Vein Thrombosis/Pulmonary Embolism Present on Admission: No
[2017-08-16] MEDS ORDERED: sitaGLIPtin 100 MG TABLET PO SCH (09:00)
[2017-08-16] MEDS: metFORMIN 500 MG TABLET PO SCH (09:35)
[2017-08-16] MEDS: DOCUSATE SODIUM 100 MG CAPSULE PO SCH (09:35)
[2017-08-16] MEDS: DEXAMETHASONE 4 MG TABLET PO SCH (09:36)
[2017-08-16] MEDS: morphine 30 MG TAB.SR.12H PO SCH (09:36)
[2017-08-16] MEDS: sitaGLIPtin 100 MG TABLET PO SCH (09:36)
[2017-08-16] MEDS: levETIRAcetam 500 MG TABLET PO SCH (09:37)
[2017-08-16] MEDS: HEPARIN 5,000 UNIT/ML VIAL SQ SCH (09:37)
[2017-08-16] MEDS: cefTRIAXone 1 GM in DEXTROSE 5% IN WATER 50 ML IV SCH (10:29)
[2017-08-16] MEDS: 0.9 % SODIUM CHLORIDE 10 ML SYRINGE IV SCH ×2 (10:31→10:56)
[2017-08-16] MEDS ORDERED: HEPARIN SODIUM,PORCINE/PF 500 UNIT/5 ML SYRINGE IV ONE (10:44)
[2017-08-16] MEDS: ALPRAZolam 0.5 MG TABLET PO PRN (10:50)
== END 2017-08-16 11:20 | DRG 543 ==
LOC: ED 19:20 → MEDSUR 08-13 02:00
PROVIDERS: ADMIT Internal Medicine; ATTEND Specialist